=== PATIENT | female | born 1965 ===

== ENCOUNTER 2017-05-02 10:50 | Emergency (ER) | payer OTHER ==
[2017-05-02 10:55] VITALS: O2SAT 98; BMI 31.1
--- NOTE | 2017-05-02 11:24 | ED PDOC ---
Upper Extremity Pain/Injury Time Seen by Provider: 05/02/17 11:00 Chief Complaint (Nursing): Finger,Hand,&Wrist History Per: Patient Onset/Duration Of Symptoms: Other (2 months) Current Symptoms Are (Timing): Still Present Quality: Aching Severity: Moderate Pain Scale Rating Of: 4 Exacerbating Factor(s): Movement Additional Complaint(s): Pain base right thumb x 2 months. No injury. Pain on adduction. Past Medical History Vital Signs: Last Vital Signs Temp 96.6 F L 05/02/17 10:54 Pulse 65 05/02/17 10:54 Resp 20 05/02/17 10:54 BP 129/81 05/02/17 10:54 Pulse Ox 98 05/02/17 10:54 - Medical History PMH: Anxiety, Depression, HTN, Osteoporosis Denies: Chronic Kidney Disease - Family History Family History: States: Unknown Family Hx - Immunization History Hx Tetanus Toxoid Vaccination: No Hx Influenza Vaccination: No Hx Pneumococcal Vaccination: No - Home Medications Home Medications: Ambulatory Orders Medication Instructions Recorded clonazePAM [clonAZEPAM] 0.5 mg PO HS PRN #5 tab 04/26/15 Atenolol 50 mg PO DAILY 09/30/15 Ibuprofen [Motrin] 600 mg PO Q6H PRN #20 tab 03/15/17 amLODIPine [Norvasc] 5 mg PO DAILY 03/15/17 Naproxen [Naprosyn] 500 mg PO Q12H #20 tab 05/02/17 - Allergies Allergies/Adverse Reactions: Allergies Allergy/AdvReac Type Severity Reaction Status Date / Time No Known Allergies Allergy Verified 09/30/15 17:03 Review of Systems Constitutional: Negative for: Fever Musculoskeletal: Positive for: Hand Pain Physical Exam - Physical Exam Appears: Positive for: Non-toxic, No Acute Distress Skin: Positive for: Normal Color, Warm, DRY Extremity: Positive for: Other (Right hand base of thumb. No swelling or deformity FROM. Tendrness base flexor surface.) Neurologic/Psych: Positive for: Alert, Oriented. Negative for: Motor/Sensory Deficits - ECG O2 Sat by Pulse Oximetry: 98 Disposition - Clinical Impression Clinical Impression: Tendonitis - Patient ED Disposition Is Patient to be Admitted: No Counseled Patient/Family Regarding: Studies Performed, Diagnosis, Need For Followup, Rx Given - Disposition Referrals: [facility] [Outside] Disposition: Routine/Home Disposition Time: 12:27 Condition: FAIR Prescriptions: Naproxen [Naprosyn] 500 mg PO Q12H #20 tab Instructions: Tendinitis (ED) Forms: [facility] ([place] Citizen) Print Language: FINNISH
--- NOTE | 2017-05-02 12:32 | RAD ---
PROCEDURE: Right Hand Radiographs. HISTORY: Pain right thumb base COMPARISON: None available. FINDINGS: BONES: No acute displaced fracture. JOINTS: No dislocation. SOFT TISSUES: Unremarkable. No evidence of radiopaque foreign body. OTHER FINDINGS: None. IMPRESSION: No acute displaced fracture, dislocation, or significant joint effusion identified. If symptoms persist, or if there is continued clinical concern, x-ray follow-up in 7-10 days should be considered.
[2017-05-02 13:05] VITALS: BP 128/78; PULSE 78; RESP 19; TEMP 97.6
== END 2017-05-02 13:05 | disposition home or self-care (01) ==
LOC: H.ER 10:50
DX: M65.841 Other synovitis and tenosynovitis, right hand (principal); F32.9 Major depressive disorder, single episode, unspecified; F41.9 Anxiety disorder, unspecified; I10 Essential (primary) hypertension; M77.9 Enthesopathy, unspecified

== ENCOUNTER 2017-06-11 11:03 | Emergency (ER) | payer OTHER ==
[2017-06-11 11:15] VITALS: BP 140/86; PULSE 74; RESP 20; TEMP 97.5; BMI 30.1
[2017-06-11 11:23] VITALS: O2SAT 98
--- NOTE | 2017-06-11 14:46 | ED PDOC ---
HPI: General Adult Time Seen by Provider: 06/11/17 11:57 Chief Complaint (Nursing): Upper Extremity Problem/Injury History Per: Patient, [employer] ([place] [id number]) Additional Complaint(s): Pt. states for the past 4 months she's had atraumatic R thumb pain. Had x-ray done 2 months ago and was told to take Motrin without any relief. Pt. has also been using splint with thumb spica. She was instructed to see a specialist but has not been able to. Denies trauma, fever, numbness, tingling, previous injury to thumb. Of note, pt. is R hand dominant. Past Medical History Reviewed: Historical Data, Nursing Documentation, Vital Signs Vital Signs: Last Vital Signs Temp 97.5 F L 06/11/17 11:14 Pulse 74 06/11/17 11:14 Resp 20 06/11/17 11:14 BP 140/86 06/11/17 11:14 Pulse Ox 98 06/11/17 11:21 - Medical History PMH: Anxiety, Depression, HTN, Osteoporosis Denies: Chronic Kidney Disease - Family History Family History: States: No Known Family Hx - Immunization History Hx Tetanus Toxoid Vaccination: No Hx Influenza Vaccination: No Hx Pneumococcal Vaccination: No - Home Medications Home Medications: Ambulatory Orders Medication Instructions Recorded clonazePAM [clonAZEPAM] 0.5 mg PO HS PRN #5 tab 04/26/15 Atenolol 50 mg PO DAILY 09/30/15 Ibuprofen [Motrin] 600 mg PO Q6H PRN #20 tab 03/15/17 amLODIPine [Norvasc] 5 mg PO DAILY 03/15/17 Naproxen [Naprosyn] 500 mg PO Q12H #20 tab 05/02/17 Meloxicam [Mobic] 7.5 mg PO DAILY PRN #14 tab 06/11/17 - Allergies Allergies/Adverse Reactions: Allergies Allergy/AdvReac Type Severity Reaction Status Date / Time No Known Allergies Allergy Verified 06/11/17 11:21 Review of Systems ROS Statement: Except As Marked, All Systems Reviewed And Found Negative Physical Exam - Physical Exam Appears: Positive for: Well, Non-toxic, No Acute Distress Skin: Positive for: Normal Color, Warm. Negative for: Rash Pulses-Radial (L): 2+ Pulses-Radial (R): 2+ Extremity: Positive for: Other (R thumb with mild tenderness on 1st MTP without erythema or swelling; FROM actively) Neurologic/Psych: Positive for: Alert, Oriented - ECG O2 Sat by Pulse Oximetry: 98 Disposition - Clinical Impression Clinical Impression: Thumb pain - Patient ED Disposition Is Patient to be Admitted: No - Disposition Referrals: [facility] [Outside] Bala De La Rosa MD [Staff Provider] - Disposition Time: 12:20 Condition: STABLE Prescriptions: Meloxicam [Mobic] 7.5 mg PO DAILY PRN #14 tab PRN Reason: Pain, Mild (1-3) Instructions: Arthralgia (ED) Forms: [employer] ([place]) Print Language: [id number]
== END 2017-06-11 12:53 | disposition home or self-care (01) ==
LOC: H.ER 11:03
DX: M79.644 Pain in right finger(s) (principal); F32.9 Major depressive disorder, single episode, unspecified; F41.9 Anxiety disorder, unspecified; I10 Essential (primary) hypertension
CPT/HCPCS: 96372; 99283; J1885